=== PATIENT | male | born 1990 | race Caucasian/White ===

== ENCOUNTER 2019-04-16 18:47 | Emergency (ER) | payer BC ==
[~2019-04-16] VITALS: Ht 180.3 cm; Wt 90.7 kg
[2019-04-16] MEDS ORDERED: IBUPROFEN600 MG PO (21:05)
[2019-04-16] MEDS ORDERED: NORCO 5-325 TA1 EACH PO (21:05)
== END 2019-04-16 23:37 | disposition home or self-care (01) ==
LOC: ED 18:47
DX: S82.431A Displaced oblique fracture of shaft of right fibula, initial encounter for closed fracture (principal); W22.8XXA Striking against or struck by other objects, initial encounter; Y93.89 Activity, other specified; Y92.488 Other paved roadways as the place of occurrence of the external cause; Y99.8 Other external cause status

== ENCOUNTER → 2019-05-03 | Outpatient (CLI) | payer BC ==
[~2019-05-03] MED LIST: IBUPROFEN600 MG PO; NORCO 5-325 TA1 EACH PO
== END | disposition home or self-care (01) ==
LOC: ORTHO 00:49
DX: S82.831D Other fracture of upper and lower end of right fibula, subsequent encounter for closed fracture with routine healing (principal); X58.XXXD Exposure to other specified factors, subsequent encounter

== ENCOUNTER → 2019-05-17 | Outpatient (CLI) | payer BC | END | disposition home or self-care (01) | LOC: ORTHO 00:50 | DX: S82.831D Other fracture of upper and lower end of right fibula, subsequent encounter for closed fracture with routine healing (principal); X58.XXXD Exposure to other specified factors, subsequent encounter ==

== ENCOUNTER → 2019-06-20 | Outpatient (CLI) | payer BC | END | disposition home or self-care (01) | LOC: ORTHO 01:23 | DX: S82.831D Other fracture of upper and lower end of right fibula, subsequent encounter for closed fracture with routine healing (principal); X58.XXXD Exposure to other specified factors, subsequent encounter ==